=== PATIENT | male | born 1975 | race Caucasian/White ===

== ENCOUNTER 2016-06-02 22:01 | Inpatient (IN) | payer OTHER ==
[~2016-06-02] VITALS: Ht 180.3 cm; Wt 88.7 kg
[2016-06-02] MEDS ORDERED: METO-448 PO (22:48)
[2016-06-02] MEDS ORDERED: CLOP75TA27 PO (22:48)
[2016-06-02] MEDS ORDERED: ATOR40TA68 PO (22:48)
[2016-06-02] MEDS ORDERED: QUET300T13 PO (22:49)
[2016-06-02] MEDS ORDERED: MIRT7.5T8 PO (22:50)
[2016-06-02] MEDS ORDERED: BUPR300T48 PO (22:50)
[2016-06-02] MEDS ORDERED: GABA400C14 PO (22:50)
--- NOTE | 2016-06-02 22:51 | ERA ---
ER Documentation Chief Complaint Date/Time DATE: 06/02/16 TIME: 22:50 Chief Complaint FATIGUE, WEIGHT LOSS, THIRST, POLYURIA X MANY DAYS. "BLACKED OUT" TODAY HPI The patient is a 40-year-old male, presenting to the ER because of weight loss 50 pounds since November 2015. He complains of polydipsia, polyuria for the last couple days, complains of headache, fatigue. He complained of syncope today. He denies tongue bite, fecal, urinary incontinence. He denies fever, chills, neck pain, chest pain, abdominal pain, vomiting, dysuria, diarrhea. He does not smoke or drink, smokes marijuana Past medical history: Hypertension, dyslipidemia, bipolar disorder, CAD Past surgical history: Stent PCI ROS All systems reviewed and are negative except as per history of present illness. Medications Home Meds Reported Medications Gabapentin* (Gabapentin*) 400 Mg Capsule, 400 MG PO TID, #90 CAP 06/02/16 Bupropion Hcl* (Wellbutrin XL*) 300 Mg Tab.sr.24h, 300 MG PO DAILY, TAB.SA 06/02/16 Mirtazapine* (Mirtazapine*) 7.5 Mg Tablet, 7.5 MG PO HS, TAB 06/02/16 Quetiapine Fumarate* (Seroquel*) 300 Mg Tablet, 300 MG PO HS, TAB 06/02/16 Clopidogrel Bisulfate (Clopidogrel) 75 Mg Tablet, 75 MG PO DAILY, #30 TAB 06/02/16 Atorvastatin* (Atorvastatin*) 40 Mg Tablet, 40 MG PO QHS, #30 TAB 06/02/16 Metoprolol Tartrate* (Lopressor*) 25 Mg Tab, 25 MG PO BID, #60 TAB 06/02/16 Allergies Allergies: Coded Allergies: No Known Allergy (Unverified , 06/02/16) PMhx/Soc History of Surgery: Yes (ANGIOPLASTY WITH STENT PLACEMENT) Anesthesia Reaction: No Hx Neurological Disorder: No Hx Respiratory Disorders: No Hx Cardiac Disorders: Yes (W[place] X 2) Hx Psychiatric Problems: Yes (BIPOLAR) Hx Miscellaneous Medical Probl: No Hx Alcohol Use: Yes (QUIT 6 MONTHS AGO) Hx Substance Use: No Hx Tobacco Use: No Smoking Status: Never smoker Physical Exam Vitals Vital Signs Date Time Temp Pulse Resp B/P Pulse Ox O2 Delivery O2 Flow Rate FiO2 06/03/16 02:41 71 18 101/70 99 Room Air 06/03/16 00:00 69 14 87/53 96 Room Air 06/02/16 22:10 98.0 78 16 95/62 100 Physical Exam Const: No acute distress. Dehydrated Head: Atraumatic. Eyes: Normal Conjunctiva. ENT: Normal External Ears, Nose and Mouth. Neck: Full range of motion. No meningismus. Resp: Clear to auscultation bilaterally. Cardio: Regular rate and rhythm, no murmurs. Abd: Soft, non distended, normal bowel sounds, non tender. Skin: No petechiae or rashes. Back: No midline or flank tenderness. Ext: No cyanosis, or edema. Neur: Awake and alert. No focal deficit Psych: Normal Mood and Affect. Result Diagram: 06/02/16222906/02/162229 Results 24 hrs Laboratory Tests Test 06/02/16 22:04 06/02/16 22:30 06/02/16 22:50 06/02/16 22:54 Bedside Glucose 490mg/dL Activated Partial Thromboplast Time 21.7Sec Alanine Aminotransferase (ALT/SGPT) 30IU/L Albumin 3.2g/dl Albumin/Globulin Ratio 1.23 Alkaline Phosphatase 223IU/L Anion Gap 18 Aspartate Amino Transf (AST/SGOT) 15IU/L Basophils # 0.010^3/ul Basophils % 0.4% Blood Urea Nitrogen 9mg/dl Calcium Level 8.2mg/dl Carbon Dioxide Level 23mmol/L Chloride Level 93mmol/L Creatinine 0.74mg/dl Direct Bilirubin 0.00mg/dl Eosinophils # 0.110^3/ul Eosinophils % 1.1% Globulin 2.60g/dl Glucose Level 477mg/dl Hematocrit 43.4% Hemoglobin 15.2g/dl INR International Normalized Ratio 0.91 Indirect Bilirubin 0.6mg/dl Lymphocytes # 1.010^3/ul Lymphocytes % 17.7% Magnesium Level 1.5mg/dl Mean Corpuscular Hemoglobin 32.2pg Mean Corpuscular Hemoglobin Concent 35.1g/dl Mean Corpuscular Volume 91.7fl Mean Platelet Volume 9.3fl Monocytes # 0.510^3/ul Monocytes % 9.5% Neutrophils # 4.010^3/ul Neutrophils % 71.3% Nucleated Red Blood Cells # 0.010^3/ul Nucleated Red Blood Cells % 0.0/100WBC Phosphorus Level 3.5mg/dl Platelet Count 10392^3/UL Potassium Level 3.1mmol/L Prothrombin Time 12.2Sec Prothrombin Time Ratio 1.0 Red Blood Count 4.7310^6/ul Red Cell Distribution Width 14.0% Sodium Level 131mmol/L Total Bilirubin 0.6mg/dl Total Protein 5.8g/dl Troponin I < 0.012ng/ml White Blood Count 5.710^3/ul Lactic Acid Level 0.8mmol/L Arterial Blood HCO3 23.1mmol/L Arterial Blood Base Excess -1.1mmol/L Arterial Blood Oxygen Saturation 94.2mmHG Librado Test ACCEPTAB Arterial Blood Gas Puncture Site Right Radial Arterial Blood Carboxyhemoglobin 0.5% Arterial Blood Date Drawn 06/02/2016 11:09:23 PM Arterial Blood Methemoglobin 0.4% Arterial Blood pCO2 (Temp correct) 37.4mmhg Arterial Blood pH (Temp corrected) 7.409 Arterial Blood pO2 (Temp corrected) 69.4mmHG Blood Gas A-a O2 Differential 35.5mmHg Blood Gas Modality ROOM AIR Blood Gas Notified Time 06/02/2016 11:14:40 PM Blood Gas Notified Whom [place] Blood Gas Specimen Source Blood arterial Blood Gas Temperature 37.0C FiO2 21.0% Oxyhemoglobin Percent 93.4% Total Hemoglobin 16.3g/dl Test 06/03/16 00:18 06/03/16 01:56 Lactic Acid Level 1.0mmol/L Bedside Glucose 276mg/dL Current Medications Medications (Trade) Dose Ordered Sig/Daniel Route PRN Reason Start Time Stop Time Status Last Admin Dose Admin Sodium Chloride 1,000 ml @ 1,000 mls/hr Q1H ONCE IV 06/02/16 23:00 06/02/16 23:59 DC 06/03/16 00:18 Sodium Chloride 1,000 ml @ 1,000 mls/hr Q1H ONCE IV 06/02/16 23:00 06/02/16 23:59 DC 06/03/16 00:20 Potassium Chloride (KCl 40 MEQ/250 ML NS) 250 ml @ 62.5 mls/hr ONCE ONCE IVPB 06/03/16 00:30 06/03/16 00:30 DC Insulin Human Regular 8.18 unit 8.18 unit ONCE ONCE IV 06/03/16 00:30 06/03/16 00:31 DC 06/03/16 00:52 Potassium Chloride/Sodium Chloride (KCl/NS) 270 ml @ 67.5 mls/hr ONCE ONCE IV 06/03/16 00:30 06/03/16 04:29 06/03/16 01:04 Procedures/MDM [place] [id number] Radiology Main Line: [phone] DIAGNOSTIC IMAGING REPORT Patient: BRYCE RAUSCH : 1975 Age: 40 Sex: M MR #: [id number] DOS: 06/02/16 2256 Ordering MD: BOBBY OTERO MD Location: E/R Room/Bed: PROCEDURE: CT Brain without contrast. CLINICAL INDICATION: Syncope. TECHNIQUE: Serial axial computed tomographic images of the brain was performed on a CT scanner from the skull base through the vertex without contrast. Sagittal and coronal reconstruction images were produced. Exam CTDlvol = 48 mGy and DLP = 774 mGy-cm. One of the following 3 dose reduction techniques were used: Automated exposure control; adjustment of the mA and/or kV according to patient size; or use of iterative reconstruction technique. COMPARISON: None available FINDINGS: The ventricles and sulci are normal in size and configuration. There is no midline shift. There are no focal parenchymal abnormalities. There is no acute stroke. No acute intracranial hemorrhage or abnormal extra-axial fluid collection. No fracture identified. Visualized paranasal sinuses are clear. IMPRESSION: 1. No acute intracranial abnormality. RPTAT: HMVK .Bobby Knight MD, MD Date Time Electronically viewed and signed by .Bobby Knight MD, on 06/02/2016 23:46 .K/ CC: BOBBY OTERO MD [place] [id number] Radiology Main Line: [phone] DIAGNOSTIC IMAGING REPORT Patient: BRYCE RAUSCH : 1975 Age: 40 Sex: M MR #: [id number] DOS: 06/02/16 2254 Ordering MD: BOBBY OTERO MD Location: E/R Room/Bed: PROCEDURE: XR Chest. CLINICAL INDICATION: Possible sepsis. TECHNIQUE: Portable AP upright view of the chest was obtained. COMPARISON: None. FINDINGS: The cardiomediastinal silhouette is within normal limits. The lungs are clear. There is no evidence for pleural effusion, pneumothorax or pulmonary vascular congestion. The osseous structures are intact with no evidence for acute abnormality. RPTAT:HJJR IMPRESSION: No evidence for acute intrathoracic pathology. Physician Roly Date Time Electronically viewed and signed by Physician Roly on 06/02/2016 23:35 JR/ CC: BOBBY OTERO MD EKG: Read by emergency physician Rate/Rhythm: Normal Sinus Rhythm 74 beats/min QRS, ST, T-waves: No ST elevation, no T inversion, nonspecific inferior T abnormality Impression: Abnormal EKG ABG on room air, pH 7.4, PCO2 37, PO2 69 MEDICAL MAKING DECISION: The patient is a 40-year-old male, presenting with acute new onset diabetes mellitus, acute dehydration, acute hypokalemia. He was treated with 2 L normal saline, regular insulin 0.1 U/kg IV bolus, potassium chloride 40 mEq IV with good response. The differential diagnoses considered include but are not limited to DKA, HHS, dehydration, electrolyte abnormality, bradyarrhythmia, tachyarrhythmias, aortic outflow obstruction, neurogenic including subarachnoid hemorrhage, orthostatic hypotension and all of its causes, hypoglycemia, dysautonomia, medications. Critical Care: Time: 35 minutes excluding all billable procedures. Treatments/Evaluations: Close monitoring and treatment of unstable vital signs, cardiorespiratory, and neurologic status, while maintaining tight balance of fluid, respiratory, and cardiac interventions. Departure Diagnosis: Primary Impression: Syncope Additional Impressions: New onset type 1 diabetes mellitus, uncontrolled Hypokalemia Condition: Stable Comments The patient declined transfer to [facility]. Financial counselor did talk to him about the financial obligation of staying at [facility] I discussed the findings with the patient. I discussed the patient with the on- call hospitalist Dr. Perales who recommended to admit the patient to Dr. Galvez who previously took care of him. He was made aware of the lab, the treatment, the patient condition. The patient is admitted to telemetry at 2 AM BOBBY OTERO MD Jun 02, 2016 22:51
[2016-06-02] MEDS ORDERED: SOD CHLORIDE 0.9% 1,000 ML IV ONE ×2 (23:00)
[2016-06-02 23:05] LABS: BASOPHILS % 0.4 % (0.0-2.0); EOSINOPHILS # 0.1 10^3/ul (0.0-0.5); EOSINOPHILS % 1.1 % (0.0-7.0); HEMATOCRIT 43.4 % (42.0-52.0); HEMOGLOBIN 15.2 g/dl (14.0-18.0); LYMPHOCYTES % 17.7 % (15.0-51.0); MEAN CORPUSCULAR HEMOGLOBIN 32.2 pg (29.0-33.0); MEAN CORPUSCULAR HGB CONC 35.1 g/dl (32.0-37.0); MEAN CORPUSCULAR VOLUME 91.7 fl (82.0-101.0); MEAN PLATELET VOLUME 9.3 fl (7.4-10.4); MONOCYTE # 0.5 10^3/ul (0.3-0.9); MONOCYTES % 9.5 % (0.0-11.0); NEUTROPHILS % 71.3 % (39.0-77.0); PLATELET COUNT 166 10^3/UL (140-440); RED BLOOD COUNT 4.73 10^6/ul (4.70-6.10); UNCORRECTED WBC 5.7 10^3/ul (4.8-10.8); WHITE BLOOD COUNT 5.7 10^3/ul (4.8-10.8)
[2016-06-02 23:08] LABS: CONDITION 1
[2016-06-02 23:12] LABS: ALBUMIN 3.2 g/dl (3.3-4.9); CHLORIDE 93 mmol/L (97-110); POTASSIUM 3.1 mmol/L (3.5-5.1); SODIUM 131 mmol/L (135-144)
[2016-06-02 23:13] LABS: INR 0.91; PROTIME 12.2 Sec (12.2-14.2)
[2016-06-02 23:14] LABS: CREATININE 0.74 mg/dl (0.61-1.24); PARTIAL THROMBOPLASTIN TIME 21.7 Sec (25.0-35.0)
[2016-06-02 23:15] LABS: ALANINE AMINOTRANSFERASE 30 IU/L (13-69); ALBUMIN/GLOBULIN RATIO 1.23; ALKALINE PHOSPHATASE 223 IU/L (42-121); ANION GAP 18 (8-16); ASPARTATE AMINO TRANSFERASE 15 IU/L (15-46); BILIRUBIN,INDIRECT 0.6 mg/dl (0-1.1); BILIRUBIN,TOTAL 0.6 mg/dl (0.2-1.3); BLOOD UREA NITROGEN 9 mg/dl (7-20); CARBON DIOXIDE 23 mmol/L (21-31); PHOSPHORUS 3.5 mg/dl (2.5-4.9); TOTAL PROTEIN 5.8 g/dl (6.1-8.1)
[2016-06-02 23:15] LABS: AADO2 Arterial 35.5 mmHg (7.0-24.0); Allen Test ACCEPTAB; Arterial Base Excess -1.1 mmol/L (-3.0-3); Arterial COHb 0.5 % (0.0-3.0); Arterial Fraction of Oxyhgb 93.4 % (93.0-99.0); Arterial HCO3 23.1 mmol/L (22.0-26.0); Arterial MetHb 0.4 % (0.0-1.5); Arterial Total Hemglobin 16.3 g/dl (12.0-18.0); MODE ROOM AIR
[2016-06-02 23:16] LABS: CALCIUM 8.2 mg/dl (8.4-10.2); MAGNESIUM 1.5 mg/dl (1.7-2.5)
[2016-06-02 23:27] LABS: GLUCOSE 477 mg/dl (70-220)
[2016-06-02 23:28] LABS: TROPONIN-I < 0.012 ng/ml (0.00-0.12)
--- NOTE | 2016-06-02 23:35 | RADRPT ---
PROCEDURE: XR Chest. CLINICAL INDICATION: Possible sepsis. TECHNIQUE: Portable AP upright view of the chest was obtained. COMPARISON: None. FINDINGS: The cardiomediastinal silhouette is within normal limits. The lungs are clear. There is no evidenc e for pleural effusion, pneumothorax or pulmonary vascular congestion. The osseous structures are i ntact with no evidence for acute abnormality. RPTAT:HJJR IMPRESSION: No evidence for acute intrathoracic pathology. Physician Roly Date Time Electronically viewed and signed by Physician Roly on 06/02/2016 23:35 JR/
--- NOTE | 2016-06-02 23:46 | RADRPT ---
PROCEDURE: CT Brain without contrast. CLINICAL INDICATION: Syncope. TECHNIQUE: Serial axial computed tomographic images of the brain was performed on a CT scanner fro m the skull base through the vertex without contrast. Sagittal and coronal reconstruction images wer e produced. Exam CTDlvol = 48 mGy and DLP = 774 mGy-cm. One of the following 3 dose reduction tech niques were used: Automated exposure control; adjustment of the mA and/or kV according to patient si ze; or use of iterative reconstruction technique. COMPARISON: None available FINDINGS: The ventricles and sulci are normal in size and configuration. There is no midline shift. There ar e no focal parenchymal abnormalities. There is no acute stroke. No acute intracranial hemorrhage o r abnormal extra-axial fluid collection. No fracture identified. Visualized paranasal sinuses are clear. IMPRESSION: 1. No acute intracranial abnormality. RPTAT: HMVK .Bobby Knight MD, Date Time Electronically viewed and signed by .Bobby Knight MD, on 06/02/2016 23:46 .K/
[2016-06-03] VITALS (7 sets, daily range): BP systolic 108–119; BP diastolic 71–76; PULSE 81–99; RESP 16–20; TEMP 98.1; Ht 180.3 cm; Wt 88.7 kg
[2016-06-03] MEDS ORDERED: INSULIN REGULAR, HUMAN 100 UNIT/1 ML 3ML VIAL IV ONE (00:30)
[2016-06-03] MEDS ORDERED: POTASSIUM CHLORIDE 250 ML IVPB ONE (00:30)
[2016-06-03] MEDS ORDERED: POTASSIUM CHLORIDE 40 MEQ in SOD CHLORIDE 0.9% 250 ML IV ONE (00:30)
[2016-06-03 05:14] LABS: ADD UMIC NO; URINE BILIRUBIN (Dip) NEGATIVE (NEGATIVE); URINE BLOOD (Dip) NEGATIVE (NEGATIVE); URINE COLOR LT. YELLOW (YELLOW); URINE GLUCOSE (Dip) >=1000 % (NEGATIVE); URINE KETONES (Dip) 3+ (NEGATIVE); URINE LEUKOCYTE ESTERASE (Dip) NEGATIVE (NEGATIVE); URINE NITRITE (Dip) NEGATIVE (NEGATIVE); URINE TOTAL PROTEIN (Dip) NEGATIVE (NEGATIVE); URINE UROBILINOGEN (Dip) 0.2 E.U./dL (0.1-1.0)
[2016-06-03] MEDS ORDERED: LORAZEPAM 2 MG INJ IV ONE (08:00)
[2016-06-03] MEDS ORDERED: GLUCAGON 1 MG INJ IM PRN (13:30)
[2016-06-03] MEDS ORDERED: GLUCOSE GEL 15 GRAM TUBE BUCCAL PRN (13:30)
[2016-06-03] MEDS ORDERED: DEXTROSE 50% 50 ML SYRINGE IV PRN ×2 (13:30)
[2016-06-03] MEDS ORDERED: GLUCOSE GEL 15 GRAM TUBE PO PRN ×2 (13:30)
[2016-06-03] MEDS ORDERED: hydrALAzine 20 MG INJ IV PRN (14:30)
[2016-06-03] MEDS ORDERED: NITROGLYCERIN (SL) 0.4 MG TAB SL PRN (14:30)
[2016-06-03] MEDS: SOD CHLORIDE 0.9% 1,000 ML IV SCH (15:27)
[2016-06-03] MEDS ORDERED: LORAZEPAM 2 MG INJ ONE (16:51)
[2016-06-03] MEDS: LORAZEPAM 2 MG INJ IV PRN ×2 (16:53→21:19)
[2016-06-03] MEDS ORDERED: QUETIAPINE 100 MG TAB PO SCH (17:00)
[2016-06-03] MEDS: CLOPIDOGREL 75 MG TAB PO SCH (17:15)
[2016-06-03] MEDS: BUPROPION (XL) 150 MG TAB PO SCH (17:15)
[2016-06-03] MEDS: INSULIN ASPART [NOVOLOG] 3 ML PEN SC SCH ×2 (17:24→21:47)
[2016-06-03 17:48] LABS: ADD UMIC NO; URINE BILIRUBIN (Dip) NEGATIVE (NEGATIVE); URINE BLOOD (Dip) NEGATIVE (NEGATIVE); URINE COLOR LT. YELLOW (YELLOW); URINE KETONES (Dip) 3+ (NEGATIVE); URINE LEUKOCYTE ESTERASE (Dip) NEGATIVE (NEGATIVE); URINE NITRITE (Dip) NEGATIVE (NEGATIVE); URINE TOTAL PROTEIN (Dip) NEGATIVE (NEGATIVE); URINE UROBILINOGEN (Dip) 0.2 E.U./dL (0.1-1.0)
--- NOTE | 2016-06-03 19:45 | QN ---
Documentation Comment [id number] LOI ABBASI MD Jun 03, 2016 19:45
[2016-06-03] MEDS ORDERED: MAGNESIUM HYDROXIDE 30ML CUP PO PRN (20:00)
[2016-06-03] MEDS ORDERED: DOCUSATE SODIUM 100 MG CAP PO PRN (20:00)
[2016-06-03] MEDS ORDERED: NACL 0.9% 3 ML SYG IV SCH (20:00)
[2016-06-03] MEDS ORDERED: ONDANSETRON 4 MG INJ IV PRN (20:00)
[2016-06-03] MEDS: MIRTAZAPINE 15 MG TAB PO SCH (21:20)
[2016-06-03] MEDS: GABAPENTIN 400 MG CAP PO SCH (21:20)
[2016-06-03] MEDS: QUETIAPINE 100 MG TAB PO SCH (21:20)
[2016-06-03] MEDS: ATORVASTATIN 40 MG TAB PO SCH (21:20)
[2016-06-03] MEDS: INSULIN GLARGINE [LANtus] 3 ML PEN SC SCH (21:47)
[2016-06-04] VITALS (11 sets, daily range): BP systolic 109–133; BP diastolic 59–85; PULSE 78–98; RESP 16–22
--- NOTE | 2016-06-04 00:11 | HP ---
DATE OF ADMISSION: 06/03/2016 HISTORY OF PRESENT ILLNESS: Kunal Alvarez is a 40-year-old male with a history of psychiatric disorde r, who presents to this hospital complaining of polydipsia, polyuria for the last couple of days com plained of some dizziness. The patient denies any passing out. The patient has history of psychiat anne disorder and noted to have blood pressure of 101/70. The patient's blood sugar 477, sodium 131, potassium 3.1, hematocrit 43.4 and patient was started on insulin drip and now is being admitted fo r further management. The patient received potassium supplementation, insulin. PAST MEDICAL HISTORY: Positive for psychiatric disorder. ALLERGY HISTORY: NEGATIVE. FAMILY HISTORY: Diabetes mellitus. SOCIAL HISTORY: He is an ex-smoker, ex-drug abuser. Denies any crack cocaine but used marijuana. MEDICATION HISTORY: At home patient is on: 1. Lipitor. 2. Bupropion. 3. Plavix. 4. Gabapentin. 5. Metoprolol. 6. Mirtazapine. 7. Seroquel. PAST MEDICAL HISTORY: He has a history of CAD and angiogram intervention in the past. REVIEW OF SYSTEMS: HEENT: Unremarkable. RESPIRATORY: Unremarkable. CARDIOVASCULAR: The patient has earlier chest pain, but none at this time. ABDOMEN: Unremarkable. EXTREMITIES: Unremarkable. DATABASES COMPUTER CONSULTANT: History of on and off weakness. PHYSICAL EXAMINATION: GENERAL: The patient is a mildly overweight male, awake, alert. VITAL SIGNS: Pulse 77, blood pressure 118/76. HEAD: Atraumatic, normocephalic. Pupils equal, reactive to light. There is no pale conjunctivae o r icterus. NECK: Supple. No JVD. LUNGS: Clear. CARDIOVASCULAR: S1, S2 normal. ABDOMEN: Soft, nontender. Bowel sounds positive. No palpable mass. EXTREMITIES: There is no cyanosis, clubbing, or edema. CENTRAL NERVOUS SYSTEM: The patient is awake, alert, anxious, not in any acute respiratory distress . LABORATORY DATA: Shows hematocrit 43.4. The patient has a pH 7.40, pCO2 of 37. The patient's sodi um 131, potassium 3.1, BUN 9, creatinine 0.7. IMPRESSION: 1. New onset diabetes mellitus. 2. Hyponatremia. 3. Hypokalemia. 4. Psychiatric disorder. 5. Anxiety. PLAN: Obtain hemoglobin A1c, IV fluid, sliding scale. Continue Lantus insulin and Humalog. The mamta ent's CT of the brain done in the ER is negative. The patient's chest x-ray done in the ER is negat matias. The patient will be seen by educator senior clinical. Dictated By: LOI ABBASI MD BS/NTS Conf#: [id number] DID#: [id number]
[2016-06-04] MEDS: ACCUCHECK XX SCH (02:00)
[2016-06-04] MEDS: NS + KCL 20 MEQ 1,000 ML IV SCH ×3 (02:02→13:03)
--- NOTE | 2016-06-04 02:04 | CONS ---
DATE OF ADMISSION: 06/03/2016 DATE OF CONSULTATION: 06/03/2016 TYPE OF CONSULTATION: Cardiology. REASON FOR CONSULTATION: Syncope, assess for cardiac etiology. REQUESTING PHYSICIAN: Dr. Carlos Eduardo Abbasi HISTORY OF PRESENT ILLNESS: Mr. Alvarez is a 40-year-old male with history of hypertension, dyslipidem ia, bipolar disorder, coronary artery disease who initially presented with significant weight loss, approximately 50 pounds since November of 2015. Additionally, he is stating that he had increase urin e and had blacked out. Upon arrival in the emergency department, temperature of 98, blood pressure 95/62, pulse 78, respirations 16, saturating 100%. Patient's labs showed white count of 5.7, hemoglobin 15.2, platelet count of 166. Sodium of 131, po tassium 3.1, creatinine 0.74, BUN 9, glucose 477, AST 15, ALT 30, total protein 5.8. INR 0.91. UA negative. ABG revealing a pH of 7.409, a pO2 of 69, a pCO2 of 37. The patient's EKG revealed normal sinus rhythm at a rate of 74, normal axis, inferior Q's, anterior T-wave inversion. The patient's chest x-ray revealed no evidence for acute intracranial abnormalities and the patient' s head CT revealed no acute intracranial abnormalities. The patient was subsequently admitted to [facility] hospital floor and since admit to floor denies chest pain, shortness of breath. The patient is not wearing his telemetry as he keeps taking it off. PAST MEDICAL HISTORY: As above in HPI. MEDICATIONS CURRENTLY IN HOSPITAL: 1. Aspirin 81 mg daily. 2. Protonix 40 mg IV daily. 3. Lipitor 40 mg at bedtime. 4. Neurontin 5 mg p.o. t.i.d. 5. Remeron 7.5 mg at bedtime. 6. Seroquel 10 mg at bedtime. 7. Lantus 15 mg at bedtime. 8. Plavix 75 mg daily. 9. Wellbutrin 300 mg daily. 10. Insulin sliding scale. 11. Ativan p.r.n. 12. Hydralazine p.r.n. 13. p.r.n. 14. IV fluid hydration at 75 mL an hour. ALLERGIES: NO KNOWN DRUG ALLERGIES. SOCIAL HISTORY: No tobacco, positive ETOH. No illicit drug use. FAMILY HISTORY: No history of sudden cardiac or early CAD. REVIEW OF SYSTEMS: As above in HPI. CONSTITUTIONAL: No fevers, chills. PULMONARY: No current shortness of breath. CARDIOVASCULAR: No current chest pain. GASTROINTESTINAL: No vomiting. GENITOURINARY: No hematuria. MUSCULOSKELETAL: Degenerative joint disease. PSYCHIATRIC: Positive psychiatric history. NEUROLOGIC: No documented history of CVA. PHYSICAL EXAMINATION VITAL SIGNS: Temperature 98.3, blood pressure 119/71, pulse 92, respirations 16, saturating 95%. GENERAL: The patient is alert, awake, in no acute distress. NECK: JVP approximately 8 to 9 cm of water. CHEST: Fair air movement throughout. HEART: Regular rate and rhythm. Normal S1, S2, I/ systolic murmur, nondisplaced PMI. ABDOMEN: Positive bowel sounds, soft. EXTREMITIES: No edema, 1+ pulses bilaterally, posterior tibial. LABORATORIES: As above in HPI since admit the patient had a second troponin return negative, negati ve troponins. IMAGING STUDIES: As above in HPI. No further imaging studies for my review at this time. ECG: As above in HPI. No further electrocardiograms for my review at this time. IMPRESSION: 1. Syncope, assess for cardiac etiology. 2. Abnormal electrocardiogram, assess for acute coronary syndrome. 3. Tachycardia consistent with sinus tachycardia at this time. 4. Dyslipidemia. 5. Psychiatric disorder. 6. Hyponatremia. 7. Hyperglycemia. RECOMMENDATIONS: 1. At this time, would maintain the patient on telemetry monitoring to follow rhythm and rate close ly. 2. Complete the patient's rule out for myocardial infarction to ensure that the patient's EKG abnor malities and syncopal episode were not due to any acute coronary syndrome such as acute myocardial i nfarction. 3. Continue the patient's aspirin and Plavix at this time for prevention of cardiovascular events. 4. Check orthostatics to ensure that orthostasis is not contributing to the patient's syncopal epis ode. 5. Check a 2D echocardiogram to further assess patient's ejection fraction, wall motion, rule any m ajor valve abnormalities that may be associated with patient's syncopal episode. 6. Continue the patient's ongoing psychiatric medications. Thank you for allowing me to take part in the care of this patient. I will continue to follow along very closely with you. Further recommendations will be made as the patient progresses through his inpatient hospital clinical course. Dictated By: RAQUEL MUJICA/JAVIER Conf#: [id number] DID#: [id number] CC: CARLOS EDUARDO ABBASI MD;*EndCC*
[2016-06-04] MEDS: PANTOPRAZOLE 40 MG INJ IV SCH (06:00)
[2016-06-04 06:20] LABS: ADD SCAN DIFF NO
[2016-06-04] MEDS: SOD CHLORIDE 0.9% 1,000 ML IV SCH ×2 (06:32→16:40)
[2016-06-04 06:45] LABS: ALBUMIN 2.9 g/dl (3.3-4.9)
[2016-06-04 06:46] LABS: POTASSIUM 3.6 mmol/L (3.5-5.1)
[2016-06-04 06:48] LABS: ALBUMIN/GLOBULIN RATIO 1.16; BILIRUBIN,INDIRECT 0.3 mg/dl (0-1.1); BILIRUBIN,TOTAL 0.3 mg/dl (0.2-1.3); CREATININE 0.66 mg/dl (0.61-1.24); TOTAL PROTEIN 5.4 g/dl (6.1-8.1)
[2016-06-04 06:49] LABS: CALCIUM 8.1 mg/dl (8.4-10.2)
[2016-06-04 06:50] LABS: BASOPHILS % 0.4 % (0.0-2.0); EOSINOPHILS # 0.1 10^3/ul (0.0-0.5); EOSINOPHILS % 1.8 % (0.0-7.0); HEMATOCRIT 39.9 % (42.0-52.0); HEMOGLOBIN 14.1 g/dl (14.0-18.0); LYMPHOCYTES # 1.5 10^3/ul (0.8-2.9); LYMPHOCYTES % 33.5 % (15.0-51.0); MEAN CORPUSCULAR HEMOGLOBIN 31.5 pg (29.0-33.0); MEAN CORPUSCULAR HGB CONC 35.3 g/dl (32.0-37.0); MEAN CORPUSCULAR VOLUME 89.3 fl (82.0-101.0); MONOCYTE # 0.5 10^3/ul (0.3-0.9); MONOCYTES % 11.4 % (0.0-11.0); NEUTROPHIL # 2.4 10^3/ul (1.6-7.5); NEUTROPHILS % 52.7 % (39.0-77.0); PLATELET COUNT 174 10^3/UL (140-415); RED BLOOD COUNT 4.47 10^6/ul (4.70-6.10); RED CELL DISTRIBUTION WIDTH 13.2 % (11.5-14.5); WHITE BLOOD COUNT 4.6 10^3/ul (4.8-10.8)
[2016-06-04 07:20] LABS: CHOL/HDL RATIO 4.4 RATIO
[2016-06-04] MEDS: GABAPENTIN 400 MG CAP PO SCH ×3 (08:41→20:07)
[2016-06-04] MEDS: ASPIRIN 81 MG TAB PO SCH (08:41)
[2016-06-04] MEDS: BUPROPION (XL) 150 MG TAB PO SCH (08:41)
[2016-06-04] MEDS: CLOPIDOGREL 75 MG TAB PO SCH (08:41)
[2016-06-04] MEDS: INSULIN ASPART [NOVOLOG] 3 ML PEN SC SCH ×4 (08:50→20:11)
[2016-06-04] MEDS ORDERED: INFLUENZA VIRUS VACCINE 0.5 ML (DISPENSING) IM* ONE (09:00)
--- NOTE | 2016-06-04 11:03 | RADRPT ---
Echocardiogram Report Patient Name: BRYCE RAUSCH Gender: Male Date: 1975 Study Date: 04-Jun-2016 Manager Decision Support: Tessa Bull [facility] Location: 503 Ref. Physician: RAQUEL BAUMAN Quality: Good Procedures: Transthoracic echocardiogram with complete 2D, M-Mode, and doppler examination. Indications: Syncope. 2D/M Mode Doppler Measurement Value Normal Ranges Measurement Value Normal Ranges LVIDd 2D 4.5 3.5 - 5.6 cm AV Peak Khai 1.2 m/sec LVIDs 2D 2.7 2.1 - 4.1 cm AV Peak PG 6.0 mmHg LVPWd 2D 1.0 0.6 - 1.1 cm LVOT Peak Khai 1.0 m/sec IVSd 2D 1.1 0.6 - 1.1 cm LVOT Peak PG 4.4 mmHg AoR Diam 2D 2.6 2.0 - 3.7 cm MV E Peak Khai 0.5 m/sec EDV 2D 94.8 cm3 MV A Peak Khai 0.6 m/sec ESV 2D 19.8 cm3 MV E/A 0.9 LA Dimen 2D 3.9 2.3 - 4.0 cm MV Decel Time 199 msec MV Decel Comanche 3 MV E/A 0.9 Findings Left Ventricle: Normal left ventricular systolic function. Normal left ventricular cavity size. Normal left ventricular wall thickness. Ejection fraction is visually estimated at 55 %. Tissue Doppler/Mitral Doppler indices are consistent with impaired relaxation (Stage I diastolic dysfunction). Right Ventricle: Normal right ventricular size. Normal right ventricular systolic function. Left Atrium: The left atrium is normal in size. Right Atrium: The right atrium is normal in size. Mitral Valve: Normal appearance and function of the mitral valve with trace physiologic regurgitation. Aortic Valve: No significant aortic stenosis or insufficiency. Aortic cusps appear mildly calcified. Tricuspid Valve: Normal appearance of the tricuspid valve. Unable to obtain RVSP due to minimal presence of tricuspid regurgitation. Pulmonic Valve: Normal pulmonic valve appearance. Pericardium: Normal pericardium with no significant pericardial effusion. Aorta: Normal aortic root. IVC: Normal size and normal respiratory collapse consistent with normal right atrial pressure. Conclusions 1.Normal left ventricular systolic function. Normal left ventricular cavity size. Normal left ventricular wall thickness. Ejection fraction is visually estimated at 55 %. Tissue Doppler/Mitral Doppler indices are consistent with impaired relaxation (Stage I diastolic dysfunction). 2.Normal appearance and function of the mitral valve with trace physiologic regurgitation. 3.Normal appearance of the tricuspid valve. Unable to obtain RVSP due to minimal presence of tricuspid regurgitation. 4.No significant aortic stenosis or insufficiency. Aortic cusps appear mildly calcified. Electronically Signed By: Mahesh Ortega 04-Jun-2016 11:02:27 -0800 Patient Name: BRYCE RAUSCH Study Date: 04-Jun-[id number]
[2016-06-04] MEDS: LORAZEPAM 2 MG INJ IV PRN ×2 (12:41→19:58)
--- NOTE | 2016-06-04 13:03 | CONS ---
Date/Time of Note Date/Time of Note DATE: 06/04/16 TIME: 13:02 Assessment/Plan Assessment/Plan Additional Assessment/Plan 1. Syncope, assess for cardiac etiology- no ectopy on tele, no tachy-mayra arrhythmia noted. 2. Abnormal electrocardiogram, assess for acute coronary syndrome- r/o SD, doubt ischemia. 3. Tachycardia consistent with sinus tachycardia at this time. 4. Dyslipidemia. 5. Psychiatric disorder- stable, primary team follows 6. Hyponatremia- con't to keep euvolemic. 7. Hyperglycemia. Consultation Date/Type/Reason Admit Date/Time Jun 03, 2016 at 02:06 Initial Consult Date 24 HR Interval Summary Free Text/Dictation No acute change - no tachy-mayra arrhythmia on tele. ROS: No fever, no chills, no nausea, no vomiting, no diarrhea/constipation No recent weight changes No chest pain, no PND, no orthopnea No dizziness, blurred vision No thirst, no heat or cold intolerance Exam/Review of Systems Vital Signs Vitals Vital Signs Date Time Temp Pulse Resp B/P Pulse Ox O2 Delivery O2 Flow Rate FiO2 06/04/16 12:03 78 06/04/16 11:14 97.5 22 109/59 97 06/03/16 11:09 Room Air Intake and Output 06/03/16 06/03/16 06/04/16 15:00 23:00 07:00 Intake Total 400 ml 400 ml Balance 400 ml 400 ml Exam General: WN/WD/NAD, AOx 2-3 psych HEENT: Unicetric/atraumatic/EOMI (follow commands) NECK: JVD elevated, no thyromegaly Lymph: no lymphadenopathy HEART: regular with no S3, II/ systolic murmur at apex LUNGS: Coarse sounds ABD: soft, NT, ND, +BS : Intact Neuro: non focal SKIN: chronic changes EXT: trace edema Results Result Diagram: 06/04/16 0555 06/04/16 0600 Results 24 hrs Laboratory Tests Test 06/03/16 15:35 06/03/16 17:22 06/03/16 17:34 06/03/16 21:18 Troponin I < 0.010 Bedside Glucose 270 H 281 H Urine Bilirubin NEGATIVE Urine Clarity CLEAR Urine Color LT. YELLOW Urine Glucose 0.5% H Urine Hemoglobin NEGATIVE Urine Ketones 3+ H Urine Leukocyte Esterase NEGATIVE Urine Nitrite NEGATIVE Urine Specific [place] 1.025 Urine Total Protein NEGATIVE Urine Urobilinogen 0.2 E.U./dL Urine pH 5.5 Test 06/04/16 00:50 06/04/16 05:55 06/04/16 06:00 06/04/16 07:38 Troponin I < 0.010 < 0.010 Basophils # 0.0 Basophils % 0.4 Cholesterol Level 93 L Cholesterol/HDL Ratio 4.4 Eosinophils # 0.1 Eosinophils % 1.8 HDL Cholesterol 21 L Hematocrit 39.9 L Hemoglobin 14.1 Hemoglobin A1c LDL Cholesterol, Calculated 41 Lymphocytes # 1.5 Lymphocytes % 33.5 Mean Corpuscular Hemoglobin 31.5 Mean Corpuscular Hemoglobin Concent 35.3 Mean Corpuscular Volume 89.3 Mean Platelet Volume 11.0 H Monocytes # 0.5 Monocytes % 11.4 H Neutrophils # 2.4 Neutrophils % 52.7 Nucleated Red Blood Cells # 0.0 Nucleated Red Blood Cells % 0.0 Platelet Count 174 Red Blood Count 4.47 L Red Cell Distribution Width 13.2 Triglycerides Level 153 H White Blood Count 4.6 L Alanine Aminotransferase (ALT/SGPT) 30 Albumin 2.9 L Albumin/Globulin Ratio 1.16 Alkaline Phosphatase 103 # Anion Gap 21 H Aspartate Amino Transf (AST/SGOT) 20 Blood Urea Nitrogen 6 L Calcium Level 8.1 L Carbon Dioxide Level 20 L Chloride Level 104 # Creatinine 0.66 Direct Bilirubin 0.00 Globulin 2.50 Glucose Level 231 #H Indirect Bilirubin 0.3 Potassium Level 3.6 Sodium Level 141 Total Bilirubin 0.3 Total Protein 5.4 L Bedside Glucose 235 H Test 06/04/16 11:26 06/04/16 11:34 06/04/16 12:10 Bedside Glucose 179 180 Troponin I < 0.012 Medications Medications Current Medications Diagnostic Test (Pha) (Accucheck) 1 ea 02 XX ; Start 06/04/16 at 02:00 Insulin Glargine 15 unit 15 unit DAILY@20 SC Last administered on 06/03/16 21: 47; Admin Dose 15 UNIT; Start 06/03/16 at 20:00 Sodium Chloride (NS) 1,000 ml @ 75 mls/hr [id number] IV Last administered on 06/03 15:27; Admin Dose 75 MLS/HR; Start 06/03/16 at 14:00 Miscellaneous Information 1 ea NOTE XX ; Start 06/03/16 at 13:30 Glucose (Glutose) 15 gm Q15M PRN PO DECREASED GLUCOSE; Start 06/03/16 at 13:30 Glucose (Glutose) 22.5 gm Q15M PRN PO DECREASED GLUCOSE; Start 06/03/16 at 13: 30 Dextrose (D50w Syringe) 25 ml Q15M PRN IV DECREASED GLUCOSE; Start 06/03/16 at 13:30 Dextrose (D50w Syringe) 50 ml Q15M PRN IV DECREASED GLUCOSE; Start 06/03/16 at 13:30 Glucagon (Glucagen) 1 mg Q15M PRN IM DECREASED GLUCOSE; Start 06/03/16 at 13:30 Glucose (Glutose) 15 gm Q15M PRN BUCCAL DECREASED GLUCOSE; Start 06/03/16 at 13 :30 Aspirin (Aspirin) 81 mg DAILY PO Last administered on 06/04/16 08:41; Admin Dose 81 MG; Start 06/04/16 at 09:00 Hydralazine HCl (Apresoline) 10 mg Q6H PRN IV ELEVATED BLOOD PRESSURE; Start at 14:30 Nitroglycerin (Nitroglycerin (Sl Tab) 0.4 Mg) 1 tab Q5M PRN SL ANGINA; Start at 14:30 Atorvastatin Calcium (Lipitor) 40 mg HS PO Last administered on 06/03/16 21:20 ; Admin Dose 40 MG; Start 06/03/16 at 21:00 Bupropion HCl (Wellbutrin Xl) 300 mg DAILY PO Last administered on 06/04/16 08 :41; Admin Dose 300 MG; Start 06/03/16 at 17:00 Clopidogrel Bisulfate (plaVIX) 75 mg DAILY PO Last administered on 06/04/16 08 :41; Admin Dose 75 MG; Start 06/03/16 at 17:00 Gabapentin (Neurontin) 400 mg TID PO Last administered on 06/04/16 12:40; Admin Dose 400 MG; Start 06/03/16 at 21:00 Mirtazapine (Remeron) 7.5 mg HS PO Last administered on 06/03/16 21:20; Admin Dose 7.5 MG; Start 06/03/16 at 21:00 Lorazepam (Ativan) 1 mg Q4H PRN IV ANXIETY Last administered on 06/04/16 12:41 ; Admin Dose 1 MG; Start 06/03/16 at 17:00 Quetiapine Fumarate 300 mg 300 mg HS PO Last administered on 06/03/16 21:20; Admin Dose 300 MG; Start 06/03/16 at 21:00 Potassium Chloride/Sodium Chloride (NS-KCl 20 Meq) 1,000 ml @ 100 mls/hr Q10H IV Last administered on 06/04/16 02:02; Admin Dose 100 MLS/HR; Start 06/03/16 at 20:15 Ondansetron HCl (Zofran Inj) 4 mg Q6H PRN IV NAUSEA AND/OR VOMITING; Start at 20:00 Docusate Sodium (Colace) 100 mg Q12H PRN PO CONSTIPATION; Start 06/03/16 at 20: 00 Magnesium Hydroxide (Milk Of Mag) 30 ml DAILY PRN PO CONSTIPATION; Start at 20:00 Pantoprazole (Protonix Iv) 40 mg DAILY@06 IV ; Start 06/04/16 at 06:00 KAN MCDAINEL MD Jun 04, 2016 13:03
[2016-06-04] MEDS: ATORVASTATIN 40 MG TAB PO SCH (20:07)
[2016-06-04] MEDS: MIRTAZAPINE 15 MG TAB PO SCH (20:08)
[2016-06-04] MEDS: QUETIAPINE 100 MG TAB PO SCH (20:08)
[2016-06-04] MEDS: INSULIN GLARGINE [LANtus] 3 ML PEN SC SCH (20:11)
--- NOTE | 2016-06-04 21:50 | PN ---
Date/Time of Note Date/Time of Note DATE: 06/04/16 TIME: 21:49 Assessment/Plan VTE Prophylaxis VTE Prophylaxis Intervention: other Lines/Catheters [facility] Peripheral IV Urinary Cath still in place: No Assessment/Plan Chief Complaint/Hosp Course IMPRESSION: 1. New onset diabetes mellitus. 2. Hyponatremia. BETTER 3. Hypokalemia.BETTER 4. Psychiatric disorder. 5. Anxiety. PLAN ADA DIET SS INSULIN Problems: Subjective 24 Hr Interval Summary Respiratory: no complaints Cardiovascular: no complaints Gastrointestinal: no complaints Exam/Review of Systems Vital Signs Vitals Vital Signs Date Time Temp Pulse Resp B/P Pulse Ox O2 Delivery O2 Flow Rate FiO2 06/04/16 20:19 85 06/04/16 15:16 98.2 18 133/83 95 06/03/16 11:09 Room Air Intake and Output 06/03/16 06/03/16 06/04/16 15:00 23:00 07:00 Intake Total 400 ml 400 ml Balance 400 ml 400 ml Exam Neck: supple Respiratory: clear to auscultation Cardiovascular: regular rate and rhythm Gastrointestinal: soft Musculoskeletal: nl extremities to inspection Extremities: normal pulses Results Result Diagram: 06/04/16 0555 06/04/16 0600 Results 24 hrs Laboratory Tests Test 06/04/16 00:50 06/04/16 05:55 06/04/16 06:00 06/04/16 07:38 Troponin I < 0.010 < 0.010 Basophils # 0.0 Basophils % 0.4 Cholesterol Level 93 L Cholesterol/HDL Ratio 4.4 Eosinophils # 0.1 Eosinophils % 1.8 HDL Cholesterol 21 L Hematocrit 39.9 L Hemoglobin 14.1 Hemoglobin A1c LDL Cholesterol, Calculated 41 Lymphocytes # 1.5 Lymphocytes % 33.5 Mean Corpuscular Hemoglobin 31.5 Mean Corpuscular Hemoglobin Concent 35.3 Mean Corpuscular Volume 89.3 Mean Platelet Volume 11.0 H Monocytes # 0.5 Monocytes % 11.4 H Neutrophils # 2.4 Neutrophils % 52.7 Nucleated Red Blood Cells # 0.0 Nucleated Red Blood Cells % 0.0 Platelet Count 174 Red Blood Count 4.47 L Red Cell Distribution Width 13.2 Triglycerides Level 153 H White Blood Count 4.6 L Alanine Aminotransferase (ALT/SGPT) 30 Albumin 2.9 L Albumin/Globulin Ratio 1.16 Alkaline Phosphatase 103 # Anion Gap 21 H Aspartate Amino Transf (AST/SGOT) 20 Blood Urea Nitrogen 6 L Calcium Level 8.1 L Carbon Dioxide Level 20 L Chloride Level 104 # Creatinine 0.66 Direct Bilirubin 0.00 Globulin 2.50 Glucose Level 231 #H Indirect Bilirubin 0.3 Potassium Level 3.6 Sodium Level 141 Total Bilirubin 0.3 Total Protein 5.4 L Bedside Glucose 235 H Test 06/04/16 11:26 06/04/16 11:34 06/04/16 12:10 06/04/16 16:48 Bedside Glucose 179 180 188 Troponin I < 0.012 Test 06/04/16 17:55 06/04/16 20:05 Troponin I < 0.012 Bedside Glucose 216 Medications Medications Current Medications Diagnostic Test (Pha) (Accucheck) 1 ea 02 XX ; Start 06/04/16 at 02:00 Insulin Glargine 15 unit 15 unit DAILY@20 SC Last administered on 06/04/16 20: 11; Admin Dose 15 UNIT; Start 06/03/16 at 20:00 Sodium Chloride (NS) 1,000 ml @ 75 mls/hr [id number] IV Last administered on 06/03 15:27; Admin Dose 75 MLS/HR; Start 06/03/16 at 14:00 Miscellaneous Information 1 ea NOTE XX ; Start 06/03/16 at 13:30 Glucose (Glutose) 15 gm Q15M PRN PO DECREASED GLUCOSE; Start 06/03/16 at 13:30 Glucose (Glutose) 22.5 gm Q15M PRN PO DECREASED GLUCOSE; Start 06/03/16 at 13: 30 Dextrose (D50w Syringe) 25 ml Q15M PRN IV DECREASED GLUCOSE; Start 06/03/16 at 13:30 Dextrose (D50w Syringe) 50 ml Q15M PRN IV DECREASED GLUCOSE; Start 06/03/16 at 13:30 Glucagon (Glucagen) 1 mg Q15M PRN IM DECREASED GLUCOSE; Start 06/03/16 at 13:30 Glucose (Glutose) 15 gm Q15M PRN BUCCAL DECREASED GLUCOSE; Start 06/03/16 at 13 :30 Aspirin (Aspirin) 81 mg DAILY PO Last administered on 06/04/16 08:41; Admin Dose 81 MG; Start 06/04/16 at 09:00 Hydralazine HCl (Apresoline) 10 mg Q6H PRN IV ELEVATED BLOOD PRESSURE; Start at 14:30 Nitroglycerin (Nitroglycerin (Sl Tab) 0.4 Mg) 1 tab Q5M PRN SL ANGINA; Start at 14:30 Atorvastatin Calcium (Lipitor) 40 mg HS PO Last administered on 06/04/16 20:07 ; Admin Dose 40 MG; Start 06/03/16 at 21:00 Bupropion HCl (Wellbutrin Xl) 300 mg DAILY PO Last administered on 06/04/16 08 :41; Admin Dose 300 MG; Start 06/03/16 at 17:00 Clopidogrel Bisulfate (plaVIX) 75 mg DAILY PO Last administered on 06/04/16 08 :41; Admin Dose 75 MG; Start 06/03/16 at 17:00 Gabapentin (Neurontin) 400 mg TID PO Last administered on 06/04/16 20:07; Admin Dose 400 MG; Start 06/03/16 at 21:00 Mirtazapine (Remeron) 7.5 mg HS PO Last administered on 06/04/16 20:08; Admin Dose 7.5 MG; Start 06/03/16 at 21:00 Lorazepam (Ativan) 1 mg Q4H PRN IV ANXIETY Last administered on 06/04/16 19:58 ; Admin Dose 1 MG; Start 06/03/16 at 17:00 Quetiapine Fumarate 300 mg 300 mg HS PO Last administered on 06/04/16 20:08; Admin Dose 300 MG; Start 06/03/16 at 21:00 Potassium Chloride/Sodium Chloride (NS-KCl 20 Meq) 1,000 ml @ 100 mls/hr Q10H IV Last administered on 06/04/16 13:03; Admin Dose 100 MLS/HR; Start 06/03/16 at 20:15 Ondansetron HCl (Zofran Inj) 4 mg Q6H PRN IV NAUSEA AND/OR VOMITING; Start at 20:00 Docusate Sodium (Colace) 100 mg Q12H PRN PO CONSTIPATION; Start 06/03/16 at 20: 00 Magnesium Hydroxide (Milk Of Mag) 30 ml DAILY PRN PO CONSTIPATION; Start at 20:00 Pantoprazole (Protonix Iv) 40 mg DAILY@06 IV ; Start 06/04/16 at 06:00 LOI ABBASI MD Jun 04, 2016 21:50
[2016-06-05] VITALS (9 sets, daily range): BP systolic 94–140; BP diastolic 53–88; PULSE 68–106; RESP 16–20
[2016-06-05] MEDS: ACCUCHECK XX SCH (00:09)
[2016-06-05] MEDS: NS + KCL 20 MEQ 1,000 ML IV SCH ×2 (02:15→12:15)
[2016-06-05] MEDS: SOD CHLORIDE 0.9% 1,000 ML IV SCH (04:32)
[2016-06-05] MEDS: PANTOPRAZOLE 40 MG INJ IV SCH ×2 (05:13→08:34)
[2016-06-05 07:31] LABS: POTASSIUM 3.6 mmol/L (3.5-5.1)
[2016-06-05 07:34] LABS: CREATININE 0.64 mg/dl (0.61-1.24)
[2016-06-05 07:35] LABS: CALCIUM 8.5 mg/dl (8.4-10.2)
[2016-06-05] MEDS: ASPIRIN 81 MG TAB PO SCH (08:22)
[2016-06-05] MEDS: CLOPIDOGREL 75 MG TAB PO SCH (08:23)
[2016-06-05] MEDS: BUPROPION (XL) 150 MG TAB PO SCH (08:23)
[2016-06-05] MEDS: GABAPENTIN 400 MG CAP PO SCH ×2 (08:23→13:46)
[2016-06-05] MEDS: INSULIN ASPART [NOVOLOG] 3 ML PEN SC SCH ×2 (08:28→11:50)
[2016-06-05] MEDS: LORAZEPAM 2 MG INJ IV PRN (08:34)
--- NOTE | 2016-06-05 10:44 | PDOCDIS ---
Discharge Instructions CONDITION Patient Condition: Stable HOME CARE INSTRUCTIONS: Special Diet: 1800 ada ACTIVITY: Activity Restrictions: Slowly Increase Activity FOLLOW UP/APPOINTMENTS Appointments f/u own pcp 1 wk LOI ABBASI MD Jun 05, 2016 10:44
[2016-06-05] MEDS ORDERED: NOVO3I SC (10:46)
[2016-06-05] MEDS ORDERED: LANT3I SC (10:46)
--- NOTE | 2016-06-05 12:02 | PN ---
Date/Time of Note Date/Time of Note DATE: 06/05/16 TIME: 12:01 Assessment/Plan VTE Prophylaxis VTE Prophylaxis Intervention: other Lines/Catheters IV C[facility]ter Type (from [facility] Peripheral IV Urinary Cath still in place: No Assessment/Plan Chief Complaint/Hosp Course IMPRESSION: 1. New onset diabetes mellitus.better 2. Hyponatremia. BETTER 3. Hypokalemia.BETTER 4. Psychiatric disorder. 5. Anxiety. PLAN ADA DIET SS INSULIN home Problems: Subjective 24 Hr Interval Summary ENT: no complaints Respiratory: no complaints Cardiovascular: no complaints Exam/Review of Systems Vital Signs Vitals Vital Signs Date Time Temp Pulse Resp B/P Pulse Ox O2 Delivery O2 Flow Rate FiO2 06/05/16 11:15 98.0 68 19 119/76 98 06/05/16 04:35 Room Air Intake and Output 06/04/16 06/04/16 06/05/16 15:00 23:00 07:00 Intake Total 1000 ml 700 ml 1600 ml Output Total 550 ml 800 ml Balance 1000 ml 150 ml 800 ml Exam Neck: supple Respiratory: clear to auscultation Cardiovascular: regular rate and rhythm Gastrointestinal: soft Musculoskeletal: nl extremities to inspection Results Result Diagram: 06/04/16 0555 06/05/16 0605 Results 24 hrs Laboratory Tests Test 06/04/16 12:10 06/04/16 16:48 06/04/16 17:55 06/04/16 20:05 Troponin I < 0.012 < 0.012 Bedside Glucose 188 216 Test 06/04/16 23:11 06/05/16 06:05 06/05/16 08:05 Bedside Glucose 176 223 H Anion Gap 15 Blood Urea Nitrogen 4 L Calcium Level 8.5 Carbon Dioxide Level 23 Chloride Level 107 Creatinine 0.64 Glucose Level 195 Potassium Level 3.6 Sodium Level 141 Medications Medications Current Medications Diagnostic Test (Pha) (Accucheck) 1 ea 02 XX Last administered on 06/05/16 00: 09; Admin Dose 1 EA; Start 06/04/16 at 02:00 Insulin Glargine 15 unit 15 unit DAILY@20 SC Last administered on 06/04/16 20: 11; Admin Dose 15 UNIT; Start 06/03/16 at 20:00 Sodium Chloride (NS) 1,000 ml @ 75 mls/hr [id number] IV Last administered on 2/23 /17at 15:27; Admin Dose 75 MLS/HR; Start 06/03/16 at 14:00 Miscellaneous Information 1 ea NOTE XX ; Start 06/03/16 at 13:30 Glucose (Glutose) 15 gm Q15M PRN PO DECREASED GLUCOSE; Start 06/03/16 at 13:30 Glucose (Glutose) 22.5 gm Q15M PRN PO DECREASED GLUCOSE; Start 06/03/16 at 13: 30 Dextrose (D50w Syringe) 25 ml Q15M PRN IV DECREASED GLUCOSE; Start 06/03/16 at 13:30 Dextrose (D50w Syringe) 50 ml Q15M PRN IV DECREASED GLUCOSE; Start 06/03/16 at 13:30 Glucagon (Glucagen) 1 mg Q15M PRN IM DECREASED GLUCOSE; Start 06/03/16 at 13:30 Glucose (Glutose) 15 gm Q15M PRN BUCCAL DECREASED GLUCOSE; Start 06/03/16 at 13 :30 Aspirin (Aspirin) 81 mg DAILY PO Last administered on 06/05/16 08:22; Admin Dose 81 MG; Start 06/04/16 at 09:00 Hydralazine HCl (Apresoline) 10 mg Q6H PRN IV ELEVATED BLOOD PRESSURE; Start at 14:30 Nitroglycerin (Nitroglycerin (Sl Tab) 0.4 Mg) 1 tab Q5M PRN SL ANGINA; Start at 14:30 Atorvastatin Calcium (Lipitor) 40 mg HS PO Last administered on 06/04/16 20:07 ; Admin Dose 40 MG; Start 06/03/16 at 21:00 Bupropion HCl (Wellbutrin Xl) 300 mg DAILY PO Last administered on 06/05/16 08 :23; Admin Dose 300 MG; Start 06/03/16 at 17:00 Clopidogrel Bisulfate (plaVIX) 75 mg DAILY PO Last administered on 06/05/16 08 :23; Admin Dose 75 MG; Start 06/03/16 at 17:00 Gabapentin (Neurontin) 400 mg TID PO Last administered on 06/05/16 08:23; Admin Dose 400 MG; Start 06/03/16 at 21:00 Mirtazapine (Remeron) 7.5 mg HS PO Last administered on 06/04/16 20:08; Admin Dose 7.5 MG; Start 06/03/16 at 21:00 Lorazepam (Ativan) 1 mg Q4H PRN IV ANXIETY Last administered on 06/05/16 08:34 ; Admin Dose 1 MG; Start 06/03/16 at 17:00 Quetiapine Fumarate 300 mg 300 mg HS PO Last administered on 06/04/16 20:08; Admin Dose 300 MG; Start 06/03/16 at 21:00 Potassium Chloride/Sodium Chloride (NS-KCl 20 Meq) 1,000 ml @ 100 mls/hr Q10H IV Last administered on 06/04/16 13:03; Admin Dose 100 MLS/HR; Start 06/03/16 at 20:15 Ondansetron HCl (Zofran Inj) 4 mg Q6H PRN IV NAUSEA AND/OR VOMITING; Start at 20:00 Docusate Sodium (Colace) 100 mg Q12H PRN PO CONSTIPATION; Start 06/03/16 at 20: 00 Magnesium Hydroxide (Milk Of Mag) 30 ml DAILY PRN PO CONSTIPATION; Start at 20:00 Pantoprazole (Protonix Iv) 40 mg DAILY@06 IV Last administered on 06/05/16 08: 34; Admin Dose 40 MG; Start 06/04/16 at 06:00 LOI ABBASI MD Jun 05, 2016 12:02
--- NOTE | 2016-06-05 15:03 | CONS ---
Date/Time of Note Date/Time of Note DATE: 06/05/16 TIME: 15:01 Assessment/Plan Assessment/Plan Additional Assessment/Plan 1. Syncope, assess for cardiac etiology- no ectopy on tele, no tachy-mayra arrhythmia noted - no ectopy on tele. 2. Abnormal electrocardiogram, assess for acute coronary syndrome- r/o HI, doubt ischemia. 3. Tachycardia consistent with sinus tachycardia at this time- HR better now. 4. Dyslipidemia. 5. Psychiatric disorder- stable, primary team follows 6. Hyponatremia- con't to keep euvolemic. 7. Hyperglycemia. Consultation Date/Type/Reason Admit Date/Time Jun 03, 2016 at 02:06 24 HR Interval Summary Free Text/Dictation No acute change. BP stable - no syncope. No tachy mayra noted. ROS: No fever, no chills, no nausea, no vomiting, no diarrhea/constipation No recent weight changes No chest pain, no PND, no orthopnea No dizziness, blurred vision No thirst, no heat or cold intolerance Exam/Review of Systems Vital Signs Vitals Vital Signs Date Time Temp Pulse Resp B/P Pulse Ox O2 Delivery O2 Flow Rate FiO2 06/05/16 12:05 68 06/05/16 11:15 98.0 19 119/76 98 06/05/16 04:35 Room Air Intake and Output 06/04/16 06/04/16 06/05/16 15:00 23:00 07:00 Intake Total 1000 ml 700 ml 1600 ml Output Total 550 ml 800 ml Balance 1000 ml 150 ml 800 ml Exam General: WN/WD/NAD, AOx 3 HEENT: Unicetric/atraumatic/EOMI (follow commands) NECK: JVD elevated, no thyromegaly Lymph: no lymphadenopathy HEART: regular with no S3, II/ systolic murmur at apex LUNGS: Coarse sounds ABD: soft, NT, ND, +BS : Intact Neuro: non focal SKIN: chronic changes EXT: trace edema Results Result Diagram: 06/04/16 0555 06/05/16 0605 Results 24 hrs Laboratory Tests Test 06/04/16 16:48 06/04/16 17:55 06/04/16 20:05 06/04/16 23:11 Bedside Glucose 188 216 176 Troponin I < 0.012 Test 06/05/16 06:05 06/05/16 08:05 06/05/16 12:39 Anion Gap 15 Blood Urea Nitrogen 4 L Calcium Level 8.5 Carbon Dioxide Level 23 Chloride Level 107 Creatinine 0.64 Glucose Level 195 Potassium Level 3.6 Sodium Level 141 Bedside Glucose 223 H 139 Medications Medications Current Medications Diagnostic Test (Pha) (Accucheck) 1 ea 02 XX Last administered on 06/05/16 00: 09; Admin Dose 1 EA; Start 06/04/16 at 02:00 Insulin Glargine 15 unit 15 unit DAILY@20 SC Last administered on 06/04/16 20: 11; Admin Dose 15 UNIT; Start 06/03/16 at 20:00 Sodium Chloride (NS) 1,000 ml @ 75 mls/hr [id number] IV Last administered on 06/03 15:27; Admin Dose 75 MLS/HR; Start 06/03/16 at 14:00 Miscellaneous Information 1 ea NOTE XX ; Start 06/03/16 at 13:30 Glucose (Glutose) 15 gm Q15M PRN PO DECREASED GLUCOSE; Start 06/03/16 at 13:30 Glucose (Glutose) 22.5 gm Q15M PRN PO DECREASED GLUCOSE; Start 06/03/16 at 13: 30 Dextrose (D50w Syringe) 25 ml Q15M PRN IV DECREASED GLUCOSE; Start 06/03/16 at 13:30 Dextrose (D50w Syringe) 50 ml Q15M PRN IV DECREASED GLUCOSE; Start 06/03/16 at 13:30 Glucagon (Glucagen) 1 mg Q15M PRN IM DECREASED GLUCOSE; Start 06/03/16 at 13:30 Glucose (Glutose) 15 gm Q15M PRN BUCCAL DECREASED GLUCOSE; Start 06/03/16 at 13 :30 Aspirin (Aspirin) 81 mg DAILY PO Last administered on 06/05/16 08:22; Admin Dose 81 MG; Start 06/04/16 at 09:00 Hydralazine HCl (Apresoline) 10 mg Q6H PRN IV ELEVATED BLOOD PRESSURE; Start at 14:30 Nitroglycerin (Nitroglycerin (Sl Tab) 0.4 Mg) 1 tab Q5M PRN SL ANGINA; Start at 14:30 Atorvastatin Calcium (Lipitor) 40 mg HS PO Last administered on 06/04/16 20:07 ; Admin Dose 40 MG; Start 06/03/16 at 21:00 Bupropion HCl (Wellbutrin Xl) 300 mg DAILY PO Last administered on 06/05/16 08 :23; Admin Dose 300 MG; Start 06/03/16 at 17:00 Clopidogrel Bisulfate (plaVIX) 75 mg DAILY PO Last administered on 06/05/16 08 :23; Admin Dose 75 MG; Start 06/03/16 at 17:00 Gabapentin (Neurontin) 400 mg TID PO Last administered on 06/05/16 13:46; Admin Dose 400 MG; Start 06/03/16 at 21:00 Mirtazapine (Remeron) 7.5 mg HS PO Last administered on 06/04/16 20:08; Admin Dose 7.5 MG; Start 06/03/16 at 21:00 Lorazepam (Ativan) 1 mg Q4H PRN IV ANXIETY Last administered on 06/05/16 08:34 ; Admin Dose 1 MG; Start 06/03/16 at 17:00 Quetiapine Fumarate 300 mg 300 mg HS PO Last administered on 06/04/16 20:08; Admin Dose 300 MG; Start 06/03/16 at 21:00 Potassium Chloride/Sodium Chloride (NS-KCl 20 Meq) 1,000 ml @ 100 mls/hr Q10H IV Last administered on 06/04/16 13:03; Admin Dose 100 MLS/HR; Start 06/03/16 at 20:15 Ondansetron HCl (Zofran Inj) 4 mg Q6H PRN IV NAUSEA AND/OR VOMITING; Start at 20:00 Docusate Sodium (Colace) 100 mg Q12H PRN PO CONSTIPATION; Start 06/03/16 at 20: 00 Magnesium Hydroxide (Milk Of Mag) 30 ml DAILY PRN PO CONSTIPATION; Start at 20:00 Pantoprazole (Protonix Iv) 40 mg DAILY@06 IV Last administered on 06/05/16 08: 34; Admin Dose 40 MG; Start 06/04/16 at 06:00 KAN MCDANIEL MD Jun 05, 2016 15:03
--- NOTE | 2016-06-08 17:41 | RADRPT ---
Vent Rate: 78 bpm RR Interval: 0 msec RI Interval: 136 msec QRS Duration: 76 msec QT Interval: 376 msec QTC Interval: 428 msec P-R-T [place]: 58 - 22 - -2 degrees Normal sinus rhythm Cannot rule out Inferior infarct , age undetermined T inversion in V3-V6, I, II, III, aVL and aVF Abnormal ECG Electronically Signed By: Russ Amaro [id number]
--- NOTE | 2016-06-08 17:47 | RADRPT ---
Vent Rate: 84 bpm RR Interval: 0 msec GA Interval: 138 msec QRS Duration: 88 msec QT Interval: 352 msec QTC Interval: 415 msec P-R-T [place]: 58 - 51 - 34 degrees Normal sinus rhythm T inverted in III Abnormal ECG Electronically Signed By: Russ Amaro [id number]
== END 2016-06-05 16:40 | disposition home or self-care (01) | DRG 638 ==
LOC: E/R 22:01 → TEL 06-03 02:06
PROVIDERS: ADMIT Internal Medicine Nephrology; ATTEND Internal Medicine Nephrology
DX: E11.65 Type 2 diabetes mellitus with hyperglycemia (principal); E87.1 Hypo-osmolality and hyponatremia; R55 Syncope and collapse; I10 Essential (primary) hypertension; F31.9 Bipolar disorder, unspecified; Z95.5 Presence of coronary angioplasty implant and graft; E87.6 Hypokalemia; R00.0 Tachycardia, unspecified
CPT/HCPCS: 36600; 70450; 71010; 80048; 80053; 80061; 81003; 82803; 82962; 83036; 83605; 83735; 84100; 84484; 85025; 85610; 85730; 87040; 87086; 90686; 93005; 93306; 96374; 96375; C9113; J1815; J2060; J3480; J7030; J7050

== ENCOUNTER 2016-07-15 15:31 | Emergency (ER) | payer OTHER ==
[~2016-07-15] VITALS: Wt 97.5 kg
[~2016-07-15 15:31] MED LIST: ATOR40TA68 PO; BUPR300T48 PO; CLOP75TA27 PO; GABA400C14 PO; LANT3I SC; METO-448 PO; MIRT7.5T8 PO; NOVO3I SC; QUET300T13 PO
[2016-07-15] MEDS ORDERED: HYDR-902 PO (18:26)
[2016-07-15] MEDS ORDERED: IBUP-1542 PO (18:27)
[2016-07-15] MEDS ORDERED: HYDROCODONE/APAP (10/325) TAB PO ONE (18:30)
[2016-07-15 18:46] VITALS: BP 119/71; PULSE 71; RESP 18; TEMP 98.2
--- NOTE | 2016-07-15 20:45 | ERD ---
ER Documentation Chief Complaint Date/Time DATE: 07/15/16 TIME: 20:44 Chief Complaint BACK PAIN AFTER SLIP AND FALL TODAY HPI Patient is a 40-year-old male with coronary disease and diabetes who presents with back pain. He slipped and fell in a sauna today. He fell onto a wood frame and he has lower right back pain. This happened at 1:30 PM. He has had no treatment as of yet. He is ambulatory. Upon review of old medical records the patient one previous visit to the ER. He goes to a local clinic for his care. ROS All systems reviewed and are negative except as per history of present illness. Medications Home Meds Active Scripts Ibuprofen* (Motrin*) 600 Mg Tab, 600 MG PO Q6H Y for PAIN AND OR ELEVATED TEMP, #30 TAB Prov:ARNOLD BRUNNER MD 07/15/16 Hydrocodone/Acetaminophen ([place] 10-325 Tablet) 1 Each Tablet, 1 TAB PO Q6H Y for PAIN, #7 TAB Prov:ARNOLD BRUNNER MD 07/15/16 Insulin Glargine* (Lantus*) 100 Unit/Ml Soln, 15 UNIT SC DAILY@20 for 28 Days, # 100 Prov:LOI ABBASI MD 06/05/16 Insulin Aspart* (Novolog Insulin Pen*) 100 Unit/Ml Soln, 5 UNIT SC WITH MEALS BEDTIME for 28 Days, #100 Prov:LOI ABBASI MD 06/05/16 Reported Medications Gabapentin* (Gabapentin*) 400 Mg Capsule, 400 MG PO TID, #90 CAP 06/02/16 Bupropion Hcl* (Wellbutrin XL*) 300 Mg Tab.sr.24h, 300 MG PO DAILY, TAB.SA 06/02/16 Mirtazapine* (Mirtazapine*) 7.5 Mg Tablet, 7.5 MG PO HS, TAB 06/02/16 Quetiapine Fumarate* (Seroquel*) 300 Mg Tablet, 300 MG PO HS, TAB 06/02/16 Clopidogrel Bisulfate (Clopidogrel) 75 Mg Tablet, 75 MG PO DAILY, #30 TAB 06/02/16 Atorvastatin* (Atorvastatin*) 40 Mg Tablet, 40 MG PO QHS, #30 TAB 06/02/16 Metoprolol Tartrate* (Lopressor*) 25 Mg Tab, 25 MG PO BID, #60 TAB 06/02/16 Allergies Allergies: Coded Allergies: No Known Allergy (Unverified , 06/02/16) PMhx/Soc History of Surgery: Yes (stent placement 2010) Anesthesia Reaction: No Hx Neurological Disorder: No Hx Respiratory Disorders: No Hx Cardiac Disorders: Yes (2x Cardiac arrest) Hx Psychiatric Problems: Yes (Bipolar Manic depressive) Hx Miscellaneous Medical Probl: No Hx Alcohol Use: Yes ( last was 6 mos ago) Hx Substance Use: Yes Hx Tobacco Use: Yes (early ') Smoking Status: Current some day smoker FmHx Family History: coronary disease, diabetes Physical Exam Vitals Vital Signs Date Time Temp Pulse Resp B/P Pulse Ox O2 Delivery O2 Flow Rate FiO2 07/15/16 18:46 98.2 71 18 119/71 99 Room Air 07/15/16 15:39 98.9 89 18 117/78 99 Physical Exam Const: No acute distress Head: Atraumatic Eyes: Normal Conjunctiva ENT: Normal External Ears, Nose and Mouth. Neck: Full range of motion..~ No meningismus. Resp: Clear to auscultation bilaterally Cardio: Regular rate and rhythm, no murmurs Abd: Soft, non tender, non distended. Normal bowel sounds Skin: Abrasions to the right lower back Back: No midline or flank tenderness Ext: No cyanosis, or edema Neur: Awake and alert, gait is normal Psych: Normal Mood and Affect Results 24 hrs Current Medications Medications (Trade) Dose Ordered Sig/Daniel Route PRN Reason Start Time Stop Time Status Last Admin Dose Admin Acetaminophen/ Hydrocodone Bitart ([place] (10/325)) 1 tab ONCE ONCE PO 07/15/16 18:30 07/15/16 18:31 DC 07/15/16 18:35 Procedures/MDM Patient is a 40-year-old male presents with right-sided back pain after a slip and fall. I doubt intra-abdominal process such as retroperitoneal hemorrhage or solid organ injury. I believe that outpatient management is appropriate. The patient will be given a prescription for ibuprofen and [place]. The patient can return for any worsening symptoms. The patient should follow-up with his local clinic within 24-48 hours. Departure Diagnosis: Primary Impression: Back pain Back pain location: low back pain Chronicity: acute Back pain laterality: right Sciatica presence: without sciatica Qualified Code: M54.5 - Acute right-sided low back pain without sciatica Condition: Fair Patient Instructions: Back Pain (Acute Or Chronic) Referrals: JOSELYN PYLE Additional Instructions: Call your primary care doctor TOMORROW for an appointment during the next 1-2 days.See the doctor sooner or return here if your condition worsens before your appointment time. ARNOLD BRUNNER MD Jul 15, 2016 20:45
== END 2016-07-15 18:47 | disposition home or self-care (01) ==
LOC: FTE 15:31
DX: S39.92XA Unspecified injury of lower back, initial encounter (principal); E11.9 Type 2 diabetes mellitus without complications; I25.10 Atherosclerotic heart disease of native coronary artery without angina pectoris; F17.210 Nicotine dependence, cigarettes, uncomplicated; W01.0XXA Fall on same level from slipping, tripping and stumbling without subsequent striking against object, initial encounter; Y92.9 Unspecified place or not applicable; Z79.4 Long term (current) use of insulin
CPT/HCPCS: Z7502; Z7610; 99283

== ENCOUNTER 2018-06-05 16:43 | Emergency (ER) | payer SELFPAY ==
[~2018-06-05] VITALS: Wt 99.3 kg
[~2018-06-05 16:43] MED LIST changes: +HYDR-3980 PO; +IBUP-1542 PO; -QUET300T13 PO; +QUET300T2 PO
[2018-06-05 16:45] VITALS: BP 141/80; PULSE 75; RESP 19
== END 2018-06-05 19:57 | disposition left against medical advice (07) ==
LOC: E/R 16:43
DX: Z53.21 Procedure and treatment not carried out due to patient leaving prior to being seen by health care provider (principal)
CPT/HCPCS: 93005

== ENCOUNTER 2018-07-26 21:14 | Emergency (ER) | payer OTHER ==
[~2018-07-26] VITALS: Ht 177.8 cm; Wt 95.0 kg
[2018-07-26 21:17] VITALS: Ht 177.8 cm; Wt 95.0 kg
[2018-07-27] MEDS ORDERED: SOD CHLORIDE 0.9% 1,000 ML IV STA (00:15)
[2018-07-27] MEDS ORDERED: morphine 4 MG/ML VIAL IV STA (00:16)
[2018-07-27] MEDS ORDERED: ONDANSETRON 4 MG INJ IV STA (00:16)
[2018-07-27 02:13] VITALS: BP 99/54; PULSE 55; RESP 20
--- NOTE | 2018-07-27 02:15 | ERD ---
ER Documentation Chief Complaint Chief Complaint syncopal episode at gym 4pm after donating blood. +weakness/dizziness HPI This is a 42-year-old male with a single episode of gym today at 4 PM after donating blood. Said he felt weak and dizzy. On arrival to the patient's verbally abusive towards staff he says he was kept waiting. Does have history of cardiac disease in the past. Denies chest pain nausea vomiting fevers or chi lls. Denies any focal neurologic complaints. Denies any other current issues. ROS All systems reviewed and are negative except as per history of present illness. Medications Home Meds Active Scripts Ibuprofen* (Motrin*) 600 Mg Tab, 600 MG PO Q6H PRN for PAIN AND OR ELEVATED TEMP, #30 TAB Prov:ARNOLD BRUNNER MD 07/15/16 Hydrocodone/Acetaminophen ([place] 10-325 Tablet) 1 Each Tablet, 1 TAB PO Q6H PRN for PAIN, #7 TAB Prov:ARNOLD BRUNNER MD 07/15/16 Insulin Glargine* (Lantus*) 100 Unit/Ml Soln, 15 UNIT SC DAILY@20 for 28 Days, #100 Prov:LOI ABBASI MD 06/05/16 Insulin Aspart* (Novolog Insulin Pen*) 100 Unit/Ml Soln, 5 UNIT SC WITH MEALS BEDTIME for 28 Days, #100 Prov:LOI ABBASI MD 06/05/16 Reported Medications Gabapentin* (Gabapentin*) 400 Mg Capsule, 400 MG PO TID, #90 CAP 06/02/16 Bupropion Hcl* (Wellbutrin XL*) 300 Mg Tab.sr.24h, 300 MG PO DAILY, TAB.SA 06/02/16 Mirtazapine* (Mirtazapine*) 7.5 Mg Tablet, 7.5 MG PO HS, TAB 06/02/16 Quetiapine Fumarate* (Seroquel*) 300 Mg Tablet, 300 MG PO HS, TAB 06/02/16 Clopidogrel Bisulfate (Clopidogrel) 75 Mg Tablet, 75 MG PO DAILY, #30 TAB 06/02/16 Atorvastatin* (Atorvastatin*) 40 Mg Tablet, 40 MG PO QHS, #30 TAB 06/02/16 Metoprolol Tartrate* (Lopressor*) 25 Mg Tab, 25 MG PO BID, #60 TAB 06/02/16 Allergies Allergies: Coded Allergies: No Known Allergy (Unverified , 06/02/16) PMhx/Soc History of Surgery: Yes (stent placement 2010) Anesthesia Reaction: No Hx Neurological Disorder: No Hx Respiratory Disorders: No Hx Cardiac Disorders: Yes (2x Cardiac arrest) Hx Psychiatric Problems: Yes (Bipolar Manic depressive) Hx Miscellaneous Medical Probl: No Hx Alcohol Use: Yes ( last was 6 mos ago) Hx Substance Use: Yes Hx Tobacco Use: Yes (early 's) Smoking Status: Former smoker Physical Exam Vitals Vital Signs Date Temp Pulse Resp B/P (MAP) Pulse Ox O2 O2 Flow FiO2 Time Delivery Rate 07/26/18 74 16 151/85 99 Room Air 23:43 (107) 07/26/18 98.2 81 16 130/66 95 21:17 (87) Physical Exam Const: No acute distress Head: Atraumatic Eyes: Normal Conjunctiva ENT: Normal External Ears, Nose and Mouth. Neck: Full range of motion. No meningismus. Resp: Clear to auscultation bilaterally Cardio: Regular rate and rhythm, no murmurs Abd: Soft, non tender, non distended. Normal bowel sounds Skin: No petechiae or rashes Back: No midline or flank tenderness Ext: No cyanosis, or edema Neur: Awake and alert Psych: Normal Mood and Affect Result Diagram: 07/27/18 0006 07/27/18 0006 Results 24 hrs Laboratory Tests Test 07/26/18 22:59 07/26/18 23:41 07/27/18 00:06 Bedside Glucose 271 mg/dL 261 mg/dL White Blood Count 12.6 10^3/ul Red Blood Count 5.11 10^6/ul Hemoglobin 15.8 g/dl Hematocrit 46.2 % Mean Corpuscular Volume 90.4 fl Mean Corpuscular Hemoglobin 30.9 pg Mean Corpuscular 34.2 g/dl Hemoglobin Concent Red Cell Distribution Width 12.6 % Platelet Count 214 10^3/UL Mean Platelet Volume 11.5 fl Immature Granulocytes % 0.200 % Neutrophils % 65.0 % Lymphocytes % 27.9 % Monocytes % 5.8 % Eosinophils % 0.6 % Basophils % 0.5 % Nucleated Red Blood Cells % 0.0 /100WBC Immature Granulocytes # 0.030 10^3/ul Neutrophils # 8.2 10^3/ul Lymphocytes # 3.5 10^3/ul Monocytes # 0.7 10^3/ul Eosinophils # 0.1 10^3/ul Basophils # 0.1 10^3/ul Nucleated Red Blood Cells # 0.0 10^3/ul Sodium Level 138 mmol/L Potassium Level 3.8 mmol/L Chloride Level 99 mmol/L Carbon Dioxide Level 25 mmol/L Anion Gap 14 Blood Urea Nitrogen 22 mg/dl Creatinine 1.29 mg/dl Est Glomerular Filtrat Rate mL/min > 60 mL/min Glucose Level 296 mg/dl Calcium Level 9.2 mg/dl Total Bilirubin 0.6 mg/dl Direct Bilirubin 0.00 mg/dl Indirect Bilirubin 0.6 mg/dl Aspartate Amino Transf (AST/SGOT) 24 IU/L Alanine 21 IU/L Aminotransferase (ALT/SGPT) Alkaline Phosphatase 167 IU/L Troponin I 0.014 ng/ml Total Protein 8.1 g/dl Albumin 4.7 g/dl Globulin 3.40 g/dl Albumin/Globulin Ratio 1.38 Current Medications Medications Dose Sig/Daniel Start Time Status Last (Trade) Ordered Route PRN Stop Time Admin Dose Reason Admin Sodium 1,000 ml @ Q1H STAT 07/27/18 DC 07/27/18 Chloride 1,000 mls/hr IV 00:15 00:28 07/27/18 01:14 Morphine 4 mg ONCE STAT 07/27/18 DC 07/27/18 Sulfate IV 00:16 00:28 (morphine) 07/27/18 00:17 Ondansetron 4 mg ONCE STAT 07/27/18 DC 07/27/18 HCl (Zofran IV 00:16 00:28 Inj) 07/27/18 00:17 Procedures/MDM EKG: Rate/Rhythm: [Normal Sinus Rhythm] QRS, ST, T-waves: [No changes consistent w/ acute ischemia] Impression: [No evidence of ischemia or arrhythmia] Chest X-ray 1V Interpreted by me: Soft Tissue: No acute abnormalities Bones: No acute abnormalities Mediastinum/Cardiac Silhouette/Lungs: [No acute abnormalities] Medical decision making: This is a very pleasant patient comes in with complaints of headache after syncopal episode. There was no tongue biting or incontinence and he had no seizure-like activity in the ER. At this point he feels clinically stable for outpatient management. This is likely secondary to hypovolemia as the patient donated blood and went to the gym and steam room. He said he did not eat in between. At this point is stable for trial of outpatient management. Instructed to call [phone] for any return of symptomology whatsoever. Departure Diagnosis: Primary Impression: Syncope Syncope type: unspecified Qualified Codes: R55 - Syncope and collapse Condition: Stable RADHA MANLEY Jul 27, 2018 02:15
== END 2018-07-27 02:29 | disposition home or self-care (01) ==
LOC: E/R 21:14
DX: R55 Syncope and collapse (principal); Z79.01 Long term (current) use of anticoagulants; Z98.61 Coronary angioplasty status; Z79.4 Long term (current) use of insulin; Z87.891 Personal history of nicotine dependence
CPT/HCPCS: 36415; 70450; 71045; 80053; 82962; 84484; 85025; 93005; 96374; 96375; J2270; J2405; J7030; Z7502